=== PATIENT | male | born 1965 | race Caucasian/White ===

== ENCOUNTER 2017-04-02 08:00 | Emergency (ER) | payer OTHER ==
[2017-04-02 08:50] LABS: HEMOGLOBIN 15.4 gm/dl (14.0-17.5); RED BLOOD COUNT 5.03 M/UL (4.20-5.50); WHITE BLOOD COUNT 8.1 K/UL (4.5-11.0)
[2017-04-02 09:02] LABS: BUN/CREATININE RATIO 24 (0-10)
== END 2017-04-02 10:25 | disposition home or self-care (01) ==
LOC: ER1 08:00
PROVIDERS: Physician Assistant
DX: L03.113 Cellulitis of right upper limb (principal); Z88.1 Allergy status to other antibiotic agents; Z88.2 Allergy status to sulfonamides
CPT/HCPCS: 36415; 80053; 85025; 87040; 96365; 99283; J0690; J7050